=== PATIENT | male | born 1970 | race African-American/Black ===

== ENCOUNTER 2019-02-10 17:58 | Emergency (ER) | payer SELFPAY ==
[~2019-02-10] VITALS: Ht 172.7 cm; Wt 63.5 kg
[2019-02-10 18:58] LABS: Basophils # (auto) 0 uL; Basophils % (auto) 0.9 % (0.0-2.0); Eosinophils # (auto) 0 uL; Eosinophils % (auto) 0.2 % (0.0-7.0); Hematocrit 42.9 % (41.0-53.0); Hemoglobin 14.1 g/dL (13.5-17.5); Lymphocytes # (auto) 1.2 uL; Lymphocytes % (auto) 28.9 % (10.0-50.0); Mean Corpuscular Hemoglobin 29.1 pg (28.0-32.0); Mean Corpuscular Hgb Conc. 32.8 g/dL (32.0-36.0); Mean Corpuscular Volume 88.5 fL (80.0-100.0); Monocytes # (auto) 0.5 uL; Monocytes % (auto) 10.8 % (0.0-12.0); Neutrophils # (auto) 2.5 uL; Neutrophils % (auto) 59.2 % (37.0-80.0); Nucleated Red Blood Cells % 0.1 %; Platelet Count (auto) 166 10^3/uL (140-450); Red Blood Cells 4.84 10^6/uL (4.5-5.90); Red Cell Distribution Width 11.9 % (11.8-14.3); White Blood Cell 4.2 10^3/uL (4.4-10.8)
[2019-02-10 19:07] LABS: INR 1.07 (0.9-1.15); Partial Thromboplastin Time 23.9 sec (23.64-32.05)
[2019-02-10 19:09] LABS: Anion Gap 4 (5-15); BUN/Creatinine Ratio 8.5; Blood Urea Nitrogen 11 mg/dL (7-18); Calcium 9.3 mg/dL (8.5-10.1); Carbon Dioxide 27 mmol/L (21-32); Chloride 105 mmol/L (98-107); GFR African American 77 mL/min; GFR Non-African American 63 mL/min; Glucose 103 mg/dL (74-106); Potassium 3.3 mmol/L (3.5-5.1); Sodium 136 mmol/L (136-145)
[2019-02-10 19:14] LABS: Alanine Aminotransferase 14 U/L (16-61); Alkaline Phosphatase 55 U/L (45-117); Aspartate Aminotransferase 12 U/L (15-37); Bilirubin, Total 0.6 mg/dL (0.2-1.0)
[2019-02-10] MEDS ORDERED: LORazepam 0.5 MG TAB PO ONE (19:45)
[2019-02-10 22:21] VITALS: BP 148/95
== END 2019-02-10 22:24 | disposition home or self-care (01) ==
LOC: ER 17:58
DX: F41.9 Anxiety disorder, unspecified (principal)
CPT/HCPCS: 36415; 80053; 83880; 84484; 85025; 85610; 85730; 93005

== ENCOUNTER → 2019-08-14 | Emergency (ER) | payer SELFPAY ==
[~2019-08-14] VITALS: Ht 172.7 cm; Wt 61.2 kg
[2019-08-14 03:26] VITALS: BP 149/81
== END | disposition home or self-care (01) ==
LOC: EDUNIT# 03:17 → EDBD 03:17 → ER 03:17
DX: I83.893 Varicose veins of bilateral lower extremities with other complications (principal); F20.5 Residual schizophrenia; I49.3 Ventricular premature depolarization; Z88.0 Allergy status to penicillin